=== PATIENT | female | born 1935 | race Caucasian/White ===

== ENCOUNTER 2021-06-09 11:54 | Day surgery (SDC) | payer MEDICARE, OTHER ==
[~2021-06-09] VITALS: Ht 165.1 cm; Wt 68.0 kg
[2021-06-09] MEDS ORDERED: Vitamin D1000 UNI1 PO (12:14)
[2021-06-09] MEDS ORDERED: LOTREL 10-20 M1 EACH PO (12:14)
--- NOTE | 2021-06-09 12:16 | NUR ---
06/09/21 1216 TERESA LUNA TETRACAINE DROP INSTILLED AT 1211. PLEDGETT INSERTED AT 1215
== END 2021-06-09 13:45 | disposition home or self-care (01) ==
LOC: ORSCSDS 11:54
PROVIDERS: Ophthalmology
PROC: 08RJ3JZ Replacement of Right Lens with Synthetic Substitute, Percutaneous Approach (ICD-10-PCS; principal; 2021-06-09 13:00)
DX: H25.13 Age-related nuclear cataract, bilateral (principal); Z87.891 Personal history of nicotine dependence; I10 Essential (primary) hypertension; Z79.899 Other long term (current) drug therapy
CPT/HCPCS: J2001; J2250; J3010; J3301; J7040; V2632